=== PATIENT | male | born 1950 | race Caucasian/White ===

== ENCOUNTER 2016-11-05 17:39 | Inpatient (IN) | payer MEDICAID ==
[~2016-11-05] VITALS: Ht 175.3 cm; Wt 109.2 kg
[2016-11-05] MEDS ORDERED: SODIUM CHLORIDE 0.9% 1,000ML IVBOLUS ONE ×2 (18:00→19:30)
[2016-11-05] MEDS ORDERED: SODIUM CHLORIDE FLUSH 10ML SYR IVF ONE (18:00)
[2016-11-05] MEDS ORDERED: PLEASE ENTER HEIGHT AND WEIGHT MC SCH (18:30)
[2016-11-05] MEDS ORDERED: PLEASE ENTER ALLERGIES MC SCH ×2 (18:30)
[2016-11-05 18:39] LABS: ASPARTATE AMINO TRANSFERASE 47 U/L (15-37)
[2016-11-05 18:41] LABS: BLOOD UREA NITROGEN 124 mg/dL (7-18)
[2016-11-05 18:44] LABS: IS PT STATUS REG ER OR PRE ER? YES
[2016-11-05] MEDS ORDERED: FAMO40TA61 PO (19:18)
[2016-11-05] MEDS ORDERED: ALLO300T PO (19:18)
[2016-11-05] MEDS ORDERED: AMLO10TA2 PO (19:18)
[2016-11-05] MEDS ORDERED: TIMO5DRO5 EACHEYE (19:18)
[2016-11-05] MEDS ORDERED: POTA10TA31 PO (19:18)
[2016-11-05] MEDS ORDERED: BENA40TA2 PO (19:18)
[2016-11-05] MEDS ORDERED: DOXA4TAB3 PO (19:18)
[2016-11-05 19:41] LABS: DAU SCREEN DISCLAIMER
[2016-11-05] MEDS ORDERED: ONDANSETRON 2MG/ML, 2ML IVPush PRN (20:00)
[2016-11-05] MEDS ORDERED: PHARMACY MAY ADJ FOR RENAL FX MC PRN (20:00)
[2016-11-05] MEDS ORDERED: morphine SULFATE 10 MG/ML, 1ML IVPush PRN (20:00)
[2016-11-05 20:06] LABS: ABG COLLECTION SITE LEFT BRACHIAL
[2016-11-05 20:18] LABS: IS PT STATUS REG ER OR PRE ER? YES
[2016-11-05 21:55] VITALS: BP 151/66
[2016-11-05] MEDS: SODIUM CHLORIDE 0.9% 1,000 ML IV SCH (21:57)
[2016-11-05] MEDS ORDERED: CEFTRIAXONE 1,000 MG in SODIUM CHLORIDE 0.9% 50 ML IV SCH (22:00)
[2016-11-05] MEDS: DOXAZOSIN 2MG TABLET PO SCH (23:36)
[2016-11-05] MEDS: CEFTRIAXONE PMX 1GM/50ML 50 ML IV SCH (23:41)
[2016-11-05] MEDS: HEPARIN 5,000 UNITS/ML, 1ML SQ SCH (23:41)
[2016-11-06 00:14] LABS: ABG COLLECTION SITE ARTERIAL LINE
[2016-11-06 02:26] LABS: ASPARTATE AMINO TRANSFERASE 48 U/L (15-37)
[2016-11-06 02:41] LABS: BLOOD UREA NITROGEN 114 mg/dL (7-18)
[2016-11-06 02:45] LABS: IS PT STATUS REG ER OR PRE ER? NO
[2016-11-06 05:00] VITALS: BP 122/62
[2016-11-06 05:46] LABS: ABG COLLECTION SITE RIGHT RADIAL; COLLATERAL CIRCULATION TESTING NORMAL
[2016-11-06] MEDS: SODIUM CHLORIDE 0.9% 1,000 ML IV SCH ×5 (06:00→20:08)
[2016-11-06] MEDS ORDERED: FAMOTIDINE 40 MG TABLET PO SCH (09:00)
[2016-11-06] MEDS: SENNA/DOCUSATE TABLET PO SCH (09:16)
[2016-11-06] MEDS: AMLODIPINE 5 MG TABLET PO SCH (09:16)
[2016-11-06] MEDS: ALLOPURINOL 300 MG TABLET PO SCH (09:17)
[2016-11-06] MEDS: FAMOTIDINE 40 MG TABLET PO SCH (09:18)
[2016-11-06] MEDS: HEPARIN 5,000 UNITS/ML, 1ML SQ SCH ×2 (09:20→16:35)
[2016-11-06] MEDS: TIMOLOL OPHTH 0.5%, 5ML EACHEYE SCH (12:00)
[2016-11-06] MEDS ORDERED: ONDANSETRON 2MG/ML, 2ML IVPush PRN (15:00)
[2016-11-06 19:05] LABS: OCCBLD OBC PASS
[2016-11-06] MEDS: DOXAZOSIN 2MG TABLET PO SCH (20:07)
[2016-11-06] MEDS: CEFTRIAXONE PMX 1GM/50ML 50 ML IV SCH (21:48)
[2016-11-07] MEDS: SODIUM CHLORIDE 0.9% 1,000 ML IV SCH ×4 (03:01→22:20)
[2016-11-07] MEDS: HEPARIN 5,000 UNITS/ML, 1ML SQ SCH ×3 (09:20→16:35)
[2016-11-07] MEDS: FAMOTIDINE 40 MG TABLET PO SCH (09:20)
[2016-11-07] MEDS: SENNA/DOCUSATE TABLET PO SCH (09:20)
[2016-11-07] MEDS: ALLOPURINOL 300 MG TABLET PO SCH (09:20)
[2016-11-07] MEDS: AMLODIPINE 5 MG TABLET PO SCH (09:20)
[2016-11-07] MEDS: TIMOLOL OPHTH 0.5%, 5ML EACHEYE SCH (09:20)
[2016-11-07] MEDS: DOXAZOSIN 2MG TABLET PO SCH (20:00)
[2016-11-07] MEDS: CEFTRIAXONE PMX 1GM/50ML 50 ML IV SCH (22:20)
[2016-11-08] MEDS: HEPARIN 5,000 UNITS/ML, 1ML SQ SCH ×4 (08:00→17:23)
[2016-11-08] MEDS: TIMOLOL OPHTH 0.5%, 5ML EACHEYE SCH (09:00)
[2016-11-08] MEDS: ALLOPURINOL 300 MG TABLET PO SCH (09:00)
[2016-11-08] MEDS: FAMOTIDINE 40 MG TABLET PO SCH (09:00)
[2016-11-08] MEDS: SENNA/DOCUSATE TABLET PO SCH (09:00)
[2016-11-08] MEDS: AMLODIPINE 5 MG TABLET PO SCH (09:00)
[2016-11-08] MEDS ORDERED: BUPIVACAINE/PF 0.5% ONE (10:09)
[2016-11-08] MEDS ORDERED: FENTANYL PF 100 MCG/2ML ONE (11:13)
[2016-11-08] MEDS ORDERED: NEOSPORIN OINT, 15GM ONE (11:49)
[2016-11-08] MEDS ORDERED: MIDAZOLAM 1 MG/ML, 2ML ONE (12:23)
[2016-11-08] MEDS ORDERED: PROPOFOL 100 ML IV ONE (13:08)
[2016-11-08] MEDS ORDERED: LIDOCAINE-MPF 1%, 2ML ENDO PRN (14:00)
[2016-11-08 14:39] LABS: ABG COLLECTION SITE LEFT BRACHIAL
[2016-11-08] MEDS: PROPOFOL 100 ML IV PRN ×3 (15:21→21:25)
[2016-11-08] MEDS: CEFAZOLIN PMX 1GM/50ML 50 ML IV SCH (17:23)
[2016-11-08] MEDS: SODIUM CHLORIDE 0.9% 1,000 ML IV SCH ×2 (17:23→23:40)
[2016-11-08] MEDS: DOXAZOSIN 2MG TABLET PO SCH (22:29)
[2016-11-08] MEDS: CEFTRIAXONE PMX 1GM/50ML 50 ML IV SCH (22:29)
[2016-11-09] MEDS: CEFAZOLIN PMX 1GM/50ML 50 ML IV SCH ×2 (01:28→11:00)
[2016-11-09] MEDS: HEPARIN 5,000 UNITS/ML, 1ML SQ SCH ×3 (01:28→21:08)
[2016-11-09] MEDS: morphine SULFATE 10 MG/ML, 1ML IVPush PRN ×2 (01:29→05:09)
[2016-11-09] MEDS: SODIUM CHLORIDE 0.9% 1,000 ML IV SCH (03:55)
[2016-11-09] MEDS: PROPOFOL 100 ML IV PRN (03:55)
[2016-11-09 04:30] LABS: ABG COLLECTION SITE LEFT RADIAL; COLLATERAL CIRCULATION TESTING NORMAL
[2016-11-09 04:46] LABS: BLOOD UREA NITROGEN 30 mg/dL (7-18)
[2016-11-09 05:23] VITALS: BP 140/57
[2016-11-09] MEDS: FAMOTIDINE 40 MG TABLET PO SCH (09:00)
[2016-11-09] MEDS: TIMOLOL OPHTH 0.5%, 5ML EACHEYE SCH (09:28)
[2016-11-09] MEDS ORDERED: SUCCINYLCHOLINE 20 MG/ML, 10ML ONE (10:44)
[2016-11-09] MEDS ORDERED: GLYCOPYRROLATE 0.2MG/1ML ONE (10:44)
[2016-11-09] MEDS ORDERED: ONDANSETRON 2MG/ML, 2ML ONE (10:44)
[2016-11-09] MEDS ORDERED: PROPOFOL 10 MG/ML, 20ML ONE (10:44)
[2016-11-09] MEDS ORDERED: ROCURONIUM 10 MG/ML ONE (10:44)
[2016-11-09] MEDS ORDERED: NEOSTIGMINE 1 MG/ML, 10ML ONE (10:44)
[2016-11-09] MEDS ORDERED: CEFAZOLIN 1,000 MG ONE (10:44)
[2016-11-09] MEDS: AMLODIPINE 5 MG TABLET PO SCH (10:58)
[2016-11-09] MEDS: ALLOPURINOL 300 MG TABLET PO SCH (10:58)
[2016-11-09] MEDS: SENNA/DOCUSATE TABLET PO SCH (10:58)
[2016-11-09] MEDS: HYDROcodone/APAP 5/325 TABLET PO PRN ×2 (13:44→21:09)
[2016-11-09 14:56] LABS: BLOOD UREA NITROGEN 41 mg/dL (7-18)
[2016-11-09] MEDS: DOXAZOSIN 2MG TABLET PO SCH (21:09)
[2016-11-09] MEDS: CEFTRIAXONE PMX 1GM/50ML 50 ML IV SCH (21:09)
[2016-11-09] MEDS: FAMOTIDINE 20 MG TABLET PO SCH (21:21)
[2016-11-10 04:43] VITALS: BP 154/68
[2016-11-10] MEDS: HEPARIN 5,000 UNITS/ML, 1ML SQ SCH ×3 (04:49→20:59)
[2016-11-10 04:53] LABS: ABG COLLECTION SITE LEFT RADIAL; COLLATERAL CIRCULATION TESTING NORMAL
[2016-11-10 06:07] LABS: ASPARTATE AMINO TRANSFERASE 19 U/L (15-37); BLOOD UREA NITROGEN 18 mg/dL (7-18)
[2016-11-10] MEDS: FAMOTIDINE 20 MG TABLET PO SCH ×2 (09:08→20:57)
[2016-11-10] MEDS: TIMOLOL OPHTH 0.5%, 5ML EACHEYE SCH (09:08)
[2016-11-10] MEDS: ALLOPURINOL 300 MG TABLET PO SCH (09:08)
[2016-11-10] MEDS: AMLODIPINE 5 MG TABLET PO SCH (09:09)
[2016-11-10] MEDS: SENNA/DOCUSATE TABLET PO SCH (09:09)
[2016-11-10 09:18] VITALS: BP 151/69
[2016-11-10 11:03] VITALS: BP 172/73
[2016-11-10 11:46] LABS: ABG COLLECTION SITE RIGHT RADIAL; COLLATERAL CIRCULATION TESTING NORMAL
[2016-11-10 13:46] VITALS: BP 174/78
[2016-11-10 18:25] VITALS: BP 171/82
[2016-11-10] MEDS: DOXAZOSIN 2MG TABLET PO SCH (20:58)
[2016-11-10] MEDS: CEFTRIAXONE PMX 1GM/50ML 50 ML IV SCH (21:56)
[2016-11-11 00:14] VITALS: BP 161/71
[2016-11-11 04:28] VITALS: BP 170/94
[2016-11-11] MEDS: HEPARIN 5,000 UNITS/ML, 1ML SQ SCH ×3 (04:47→21:49)
[2016-11-11 05:25] LABS: ASPARTATE AMINO TRANSFERASE 20 U/L (15-37); BLOOD UREA NITROGEN 14 mg/dL (7-18)
[2016-11-11 08:09] VITALS: BP_SYST 179; BP_SYST 184; BP_DIAS 80; BP_DIAS 87
[2016-11-11] MEDS: SENNA/DOCUSATE TABLET PO SCH (09:53)
[2016-11-11] MEDS: FAMOTIDINE 20 MG TABLET PO SCH ×2 (09:53→21:48)
[2016-11-11] MEDS: ALLOPURINOL 300 MG TABLET PO SCH (09:53)
[2016-11-11] MEDS: AMLODIPINE 5 MG TABLET PO SCH (09:55)
[2016-11-11] MEDS: TIMOLOL OPHTH 0.5%, 5ML EACHEYE SCH (09:58)
[2016-11-11 12:26] VITALS: BP 166/77
[2016-11-11] MEDS: BENAZEPRIL 20 MG TABLET PO SCH (12:31)
[2016-11-11 19:53] VITALS: BP 173/92
[2016-11-11] MEDS: DOXAZOSIN 2MG TABLET PO SCH (21:48)
[2016-11-11] MEDS: CEFTRIAXONE PMX 1GM/50ML 50 ML IV SCH (21:49)
[2016-11-11] MEDS ORDERED: hydrALAzine 20 MG/ML, 1ML IV ONE (22:00)
[2016-11-12 00:19] VITALS: BP 171/75
[2016-11-12] MEDS: HYDROcodone/APAP 5/325 TABLET PO PRN (01:38)
[2016-11-12 04:22] VITALS: BP 162/73
[2016-11-12 04:28] LABS: BLOOD UREA NITROGEN 12 mg/dL (7-18)
[2016-11-12] MEDS: HEPARIN 5,000 UNITS/ML, 1ML SQ SCH ×3 (05:49→21:41)
[2016-11-12] MEDS ORDERED: POTASSIUM CHLORIDE 20 MEQ TAB.ER.PRT PO ONE (07:30)
[2016-11-12 07:45] VITALS: BP 151/70
[2016-11-12] MEDS ORDERED: FUROSEMIDE 20 MG/2 ML IV ONE ×2 (08:00→16:30)
[2016-11-12] MEDS: BENAZEPRIL 20 MG TABLET PO SCH (08:56)
[2016-11-12] MEDS: TIMOLOL OPHTH 0.5%, 5ML EACHEYE SCH (08:56)
[2016-11-12] MEDS: ALLOPURINOL 300 MG TABLET PO SCH (08:57)
[2016-11-12] MEDS: SENNA/DOCUSATE TABLET PO SCH (08:57)
[2016-11-12] MEDS: AMLODIPINE 5 MG TABLET PO SCH (08:57)
[2016-11-12] MEDS: FAMOTIDINE 20 MG TABLET PO SCH ×2 (08:57→21:40)
[2016-11-12 12:32] VITALS: BP 148/75
[2016-11-12 19:30] VITALS: BP 158/77
[2016-11-12] MEDS: CEFTRIAXONE PMX 1GM/50ML 50 ML IV SCH (21:41)
[2016-11-12] MEDS: DOXAZOSIN 2MG TABLET PO SCH (21:41)
[2016-11-13 01:26] VITALS: BP 160/95
[2016-11-13] MEDS: HEPARIN 5,000 UNITS/ML, 1ML SQ SCH ×3 (05:32→21:40)
[2016-11-13 05:46] LABS: BLOOD UREA NITROGEN 17 mg/dL (7-18)
[2016-11-13 05:50] LABS: ASPARTATE AMINO TRANSFERASE 22 U/L (15-37)
[2016-11-13 06:55] VITALS: BP 170/87
[2016-11-13 07:33] VITALS: BP 170/87
[2016-11-13] MEDS ORDERED: POTASSIUM CHLORIDE 20 MEQ TAB.ER.PRT PO ONE (08:00)
[2016-11-13] MEDS: BENAZEPRIL 20 MG TABLET PO SCH (08:43)
[2016-11-13] MEDS: SENNA/DOCUSATE TABLET PO SCH (08:43)
[2016-11-13] MEDS: FUROSEMIDE 40 MG/4 ML IV SCH (08:43)
[2016-11-13] MEDS: ALLOPURINOL 300 MG TABLET PO SCH (08:43)
[2016-11-13] MEDS: FAMOTIDINE 20 MG TABLET PO SCH (08:44)
[2016-11-13] MEDS: TIMOLOL OPHTH 0.5%, 5ML EACHEYE SCH (08:44)
[2016-11-13] MEDS: AMLODIPINE 5 MG TABLET PO SCH (08:44)
[2016-11-13 13:48] VITALS: BP 151/74
[2016-11-13 19:38] VITALS: BP 162/78
[2016-11-13] MEDS: DOXAZOSIN 2MG TABLET PO SCH (21:40)
[2016-11-14 02:44] VITALS: BP 165/76
[2016-11-14] MEDS: HEPARIN 5,000 UNITS/ML, 1ML SQ SCH ×3 (04:14→20:40)
[2016-11-14 05:21] LABS: BLOOD UREA NITROGEN 19 mg/dL (7-18)
[2016-11-14 07:15] VITALS: BP 146/72
[2016-11-14] MEDS: SENNA/DOCUSATE TABLET PO SCH (09:31)
[2016-11-14] MEDS: AMLODIPINE 5 MG TABLET PO SCH (09:35)
[2016-11-14] MEDS: FUROSEMIDE 40 MG/4 ML IV SCH (09:35)
[2016-11-14] MEDS: BENAZEPRIL 20 MG TABLET PO SCH (09:36)
[2016-11-14] MEDS: ALLOPURINOL 300 MG TABLET PO SCH (09:36)
[2016-11-14] MEDS: TIMOLOL OPHTH 0.5%, 5ML EACHEYE SCH (09:36)
[2016-11-14 13:42] VITALS: BP 149/70
[2016-11-14 19:43] VITALS: BP 148/75
[2016-11-14] MEDS: DOXAZOSIN 2MG TABLET PO SCH (20:39)
[2016-11-15 03:32] VITALS: BP 164/75
[2016-11-15] MEDS: HEPARIN 5,000 UNITS/ML, 1ML SQ SCH ×3 (04:21→21:16)
[2016-11-15] MEDS: HYDROcodone/APAP 5/325 TABLET PO PRN (04:31)
[2016-11-15 05:40] LABS: BLOOD UREA NITROGEN 18 mg/dL (7-18)
[2016-11-15 07:40] VITALS: BP 148/87
[2016-11-15] MEDS: FUROSEMIDE 40 MG/4 ML IV SCH (09:14)
[2016-11-15] MEDS: ALLOPURINOL 300 MG TABLET PO SCH (09:14)
[2016-11-15] MEDS: BENAZEPRIL 20 MG TABLET PO SCH (09:14)
[2016-11-15] MEDS: HYDROCHLOROTHIAZIDE 25 MG TABLET PO SCH (09:14)
[2016-11-15] MEDS: AMLODIPINE 5 MG TABLET PO SCH (09:14)
[2016-11-15] MEDS: TIMOLOL OPHTH 0.5%, 5ML EACHEYE SCH (09:15)
[2016-11-15] MEDS: SENNA/DOCUSATE TABLET PO SCH (09:15)
[2016-11-15 13:50] VITALS: BP 125/73
[2016-11-15 19:51] VITALS: BP 121/65
[2016-11-15] MEDS: DOXAZOSIN 2MG TABLET PO SCH (21:16)
[2016-11-16] MEDS: HYDROcodone/APAP 5/325 TABLET PO PRN (02:36)
[2016-11-16 02:49] VITALS: BP 132/65
[2016-11-16] MEDS: HEPARIN 5,000 UNITS/ML, 1ML SQ SCH ×2 (05:00→13:35)
[2016-11-16 05:17] LABS: BLOOD UREA NITROGEN 19 mg/dL (7-18)
[2016-11-16 07:01] VITALS: BP 111/65
[2016-11-16] MEDS ORDERED: HYDR25TA6 PO (08:56)
[2016-11-16] MEDS ORDERED: HYDR-3240 PO (08:56)
[2016-11-16] MEDS ORDERED: FURO20TA3 PO (08:56)
[2016-11-16] MEDS ORDERED: FUROSEMIDE 20 MG TABLET PO SCH (09:00)
[2016-11-16] MEDS: HYDROCHLOROTHIAZIDE 25 MG TABLET PO SCH (10:04)
[2016-11-16] MEDS: ALLOPURINOL 300 MG TABLET PO SCH (10:04)
[2016-11-16] MEDS: SENNA/DOCUSATE TABLET PO SCH (10:05)
[2016-11-16] MEDS: AMLODIPINE 5 MG TABLET PO SCH (10:06)
[2016-11-16] MEDS: TIMOLOL OPHTH 0.5%, 5ML EACHEYE SCH (10:11)
[2016-11-16] MEDS: BENAZEPRIL 20 MG TABLET PO SCH (11:20)
[2016-11-16 13:40] VITALS: BP 120/70
== END 2016-11-16 16:19 | disposition home or self-care (01) | DRG 981 ==
LOC: ED 19:01 → EDIP 19:46 → 4EST 20:43 → CCU 22:51 → 5SO 11-06 12:14 → CCU 11-06 12:16 → 4NOR 11-10 10:35 → DCLOUNGE 11-16 15:46
PROVIDERS: ADMIT Internal Medicine; ATTEND Internal Medicine
PROC: 5A09357 Assistance with Respiratory Ventilation, Less than 24 Consecutive Hours, Continuous Positive Airway Pressure (ICD-10-PCS; 2016-11-05)
PROC: 0PSC04Z Reposition Right Humeral Head with Internal Fixation Device, Open Approach (ICD-10-PCS; principal; 2016-11-08 15:30)
DX: N17.9 Acute kidney failure, unspecified (principal); G92 Toxic encephalopathy; J96.02 Acute respiratory failure with hypercapnia; E43 Unspecified severe protein-calorie malnutrition; M62.82 Rhabdomyolysis; S42.211A Unspecified displaced fracture of surgical neck of right humerus, initial encounter for closed fracture; Z99.11 Dependence on respirator [ventilator] status; E66.2 Morbid (severe) obesity with alveolar hypoventilation; E86.0 Dehydration; N40.0 Benign prostatic hyperplasia without lower urinary tract symptoms; I12.9 Hypertensive chronic kidney disease with stage 1 through stage 4 chronic kidney disease, or unspecified chronic kidney disease; R19.5 Other fecal abnormalities; D64.9 Anemia, unspecified; W01.0XXA Fall on same level from slipping, tripping and stumbling without subsequent striking against object, initial encounter; D72.829 Elevated white blood cell count, unspecified; Y92.009 Unspecified place in unspecified non-institutional (private) residence as the place of occurrence of the external cause; Z68.39 Body mass index [BMI] 39.0-39.9, adult; Y93.89 Activity, other specified; Y99.8 Other external cause status; Z82.49 Family history of ischemic heart disease and other diseases of the circulatory system; Z79.899 Other long term (current) drug therapy; Z82.3 Family history of stroke
CPT/HCPCS: 36415; 36600; 70450; 71010; 76001; 76770; 80048; 80053; 80061; 80069; 80307; 81001; 82140; 82272; 82550; 82570; 82607; 82746; 82803; 83605; 83735; 84100; 84300; 84443; 84478; 84484; 85014; 85018; 85025; 87040; 87070; 87081; 87205; 87324; 94002; 94003; 96360; 96361; C1713; C8929; J0690; J0696; J1644; J1940; J2250; J2405; J2704; J2710; J3010; J3490; J0330; J0360; J2270; J7030